=== PATIENT | female | born 1990 | race African-American/Black ===

== ENCOUNTER 2017-05-08 08:40 | Inpatient (IN) | payer SELFPAY ==
[2017-05-08] MEDS ORDERED: METHYLPREDNISOLONE INJ 125 MG/2 ML SDV IV ONE (09:23)
[2017-05-08] MEDS ORDERED: KETOROLAC TROMETHAMINE INJ/PF 30 MG/1 ML SDV IV ONE (09:23)
[2017-05-08] MEDS ORDERED: CEFTRIAXONE 1 GM/D5W RTU 50 ML IV ONE (09:23)
--- NOTE | 2017-05-08 09:37 | ER Document Report ---
ED ENT - General Chief Complaint: Sore Throat Stated Complaint: THROAT PAIN WITH FEVER Time Seen by Provider: 05/08/17 09:09 Mode of Arrival: Ambulatory Information source: Patient Notes: 26-year-old female presents to ED for sore throat since Monday. With fevers up to 103.8 this morning. States mom made her take Tylenol the morning even though is very difficult to swallow. She is spitting out her spit now states it is too painful to swallow. Patient had fevers chills dizziness body aches headaches as well as a sore throat. TRAVEL OUTSIDE OF THE [place] IN LAST 30 DAYS: No - HPI Patient complains to provider of: Throat problem Onset: Other - monday Quality of pain: Stabbing Severity: Severe Pain Level: 5 Location of pain: Throat Associated symptoms: Chills, Drooling, Fever, Sore throat, Swollen glands, Other - unable to swallow Similar symptoms previously: No Recently seen / treated by doctor: No - Related Data Allergies/Adverse Reactions: lactose [Lactose] Adverse Reaction (Verified 05/08/17 08:48) upset stomach Past Medical History - General Information source: Patient - Social History Smoking Status: Former Smoker Cigarette use (# per day): No Chew tobacco use (# tins/day): No Smoking Education Provided: No Frequency of alcohol use: Occasional Drug Abuse: None Occupation: [employer] Lives with: Family Family History: Reviewed & Not Pertinent Patient has suicidal ideation: No Patient has homicidal ideation: No - Past Medical History Cardiac Medical History: Reports: None, Hx Hypercholesterolemia Pulmonary Medical History: Reports: Hx Bronchitis EENT Medical History: Reports: None Neurological Medical History: Reports: None Endocrine Medical History: Reports: None Renal/ Medical History: Reports: Hx Pelvic Inflammatory Disease Malignancy Medical History: Reports: None GI Medical History: Reports: None Musculoskeltal Medical History: Reports None Skin Medical History: Reports None Psychiatric Medical History: Reports: None Traumatic Medical History: Reports: None Infectious Medical History: Reports: None Past Surgical History: Reports: Hx Adenoidectomy, Hx Gynecologic Surgery - colposcopy - Immunizations Immunizations up to date: Yes Hx Diphtheria, Pertussis, Tetanus Vaccination: Yes Review of Systems - Review of Systems Constitutional: Chills, Fever, Recent illness EENT: Throat pain, Difficulty swallowing Cardiovascular: No symptoms reported Respiratory: No symptoms reported Gastrointestinal: No symptoms reported Genitourinary: No symptoms reported Female Genitourinary: No symptoms reported Musculoskeletal: No symptoms reported Skin: No symptoms reported Hematologic/Lymphatic: No symptoms reported Neurological/Psychological: No symptoms reported -: Yes All other systems reviewed and negative Physical Exam - Vital signs Vitals: Temp Pulse Resp BP Pulse Ox 99.7 F 101 H 22 H 115/57 L 97 05/08/17 08:47 05/08/17 08:47 05/08/17 08:47 05/08/17 08:47 05/08/17 08:47 Interpretation: Normal - General General appearance: Appears well, Alert - HEENT Head: Normocephalic, Atraumatic Eyes: Normal Pupils: PERRL Ears: Normal External canal: Normal Tympanic membrane: Normal Nasal: Normal Mouth/Lips: Normal Pharynx: Erythema, Exudate, Peritonsillar abscess, Tonsillar hypertrophy Neck: Anterior cervical chain - Respiratory Respiratory status: No respiratory distress Chest status: Nontender Breath sounds: Normal Chest palpation: Normal - Cardiovascular Rhythm: Regular Heart sounds: Normal auscultation Murmur: No - Abdominal Inspection: Normal Distension: No distension Bowel sounds: Normal Tenderness: Nontender Organomegaly: No organomegaly - Back Back: Normal, Nontender - Extremities General upper extremity: Normal inspection, Nontender, Normal color, Normal ROM , Normal temperature General lower extremity: Normal inspection, Nontender, Normal color, Normal ROM , Normal temperature, Normal weight bearing. No: Shannan's sign - Neurological Neuro grossly intact: Yes Cognition: Normal Orientation: AAOx4 Gilman Coma Scale Eye Opening: Spontaneous Joellen Coma Scale Verbal: Oriented Joellen Coma Scale Motor: Obeys Commands Gilman Coma Scale Total: 15 Speech: Normal Motor strength normal: LUE, RUE, LLE, RLE Sensory: Normal - Psychological Associated symptoms: Normal affect, Normal mood - Skin Skin Temperature: Warm Skin Moisture: Dry Skin Color: Normal Course - Re-evaluation Re-evalutation: 05/08/17 11:[address] Dubois, ENT peritonsillar abscess with elevated white count difficulty swallowing. He agreed to consult on this patient if she was admitted to the hospitalist. Consulted Dr. Bang will admit the patient with Dr. Dubois as consult. Patient ordered Unasyn 3 g and IV of D5 normal saline with 20 K at 150 cc an hour as per Dr Dubois's request. - Vital Signs Vital signs: Temp Pulse Resp BP Pulse Ox 99.7 F 101 H 22 H 115/57 L 97 05/08/17 08:47 05/08/17 08:47 05/08/17 08:47 05/08/17 08:47 05/08/17 08:47 - Laboratory Result Diagrams: 05/08/17 09:13 05/08/17 09:13 Laboratory results interpreted by me: 05/08/17 05/08/17 09:13 09:13 WBC 21.0 H Hgb 9.4 L Hct 30.6 L MCV 76 L MCH 23.3 L MCHC 30.8 L RDW 17.7 H Seg Neuts % (Manual) 83 H Band Neutrophils % 2 L Lymphocytes % (Manual) 11 L Abs Neuts (Manual) 17.9 H ESR 38 H C-Reactive Protein 136.3 H - Diagnostic Test Radiology reviewed: Image reviewed, Reports reviewed Discharge - Discharge Clinical Impression: Peritonsillar abscess Disposition: ADMITTED INPATIENT Admitting Provider: Hospitalist - [facility] Admitted: Medical Floor
[2017-05-08 10:07] LABS: HEMATOCRIT 30.6 % (36.0-47.0); HEMOGLOBIN 9.4 g/dL (12.0-15.5); HGB HCT DIFFERENCE -2.4; MEAN CORPUSCULAR HEMOGLOBIN 23.3 pg (27.0-33.4); MEAN CORPUSCULAR HGB CONC 30.8 g/dL (32.0-36.0); MEAN CORPUSCULAR VOLUME 76 fl (80-97); RED BLOOD COUNT 4.04 10^6/uL (3.72-5.28); RED CELL DISTRIBUTION WIDTH 17.7 % (11.5-14.0)
[2017-05-08 10:29] LABS: ALANINE AMINOTRANSFERASE 24 U/L (9-52); ALBUMIN 3.8 g/dL (3.5-5.0); ALKALINE PHOSPHATASE 47 U/L (38-126); ANION GAP 12 (5-19); ASPARTATE AMINO TRANSFERASE 17 U/L (14-36); BILIRUBIN,DIRECT 0.3 mg/dL (0.0-0.4); BILIRUBIN,TOTAL 0.6 mg/dL (0.2-1.3); BLOOD UREA NITROGEN 9 mg/dL (7-20); CARBON DIOXIDE 24 mmol/L (22-30); CHLORIDE 105 mmol/L (98-107); CREATININE RESULT 0.98 mg/dL (0.52-1.25); GLUCOSE 99 mg/dL (75-110); POTASSIUM 3.6 mmol/L (3.6-5.0); SODIUM 140.9 mmol/L (137-145); TOTAL PROTEIN 7.4 g/dL (6.3-8.2)
[2017-05-08 10:41] LABS: ANISOCYTOSIS 2+; BAND NEUTROPHILS % (MANUAL) 2 % (3-5); BASOPHILS % (MANUAL) 0 % (0-2); EOSINOPHILS % (MANUAL) 0 % (0-6); LYMPHOCYTES % (MANUAL) 11 % (13-45); MICROCYTOSIS 1+; OVALOCYTES 1+; POIKILOCYTOSIS 1+; POLYCHROMASIA SLIGHT; TOTAL CELLS COUNTED 100; TOXIC GRANULATION SLIGHT
[2017-05-08 10:44] LABS: ERYTHROCYTE SEDIMENTATION RATE 38 mm/hr (0-20)
[2017-05-08 10:45] LABS: C-REACTIVE PROTEIN 136.3 mg/L (<10.0)
--- NOTE | 2017-05-08 11:32 | RADIOLOGY REPORT (SQ) ---
EXAM DESCRIPTION: CT SOFT TISSUE NECK WITH COMPLETED DATE/TIME: 05/08/2017 10:36 am REASON FOR STUDY: sore throat difficulty swallowing possible periton COMPARISON: None. TECHNIQUE: Post IV contrasted scanning from skull base through lung apices with review of bone, soft tissue and lung windows. Reconstructed coronal and sagittal MPR images reviewed. All images stored on PACS. All CT scanners at this facility use dose modulation, iterative reconstruction, and/or weight based d osing when appropriate to reduce radiation dose to as low as reasonably achievable (ALARA). [facility]: Dose Right [facility]: CareDose [facility]: Dose Right [facility]: Teradose 4D [facility]: GitHub CONTRAST TYPE AND DOSE: 75 Isovue 370- low osmolar. RENAL FUNCTION: None required. The patient is less than 50 years old. RADIATION DOSE: 14.82 mGy. LIMITATIONS: Study is limited somewhat due to streak artifacts. FINDINGS: SKULL BASE: Intact. MAJOR SALIVARY GLANDS: No solid or cystic masses. No inflammatory changes. LYMPHADENOPATHY: No adenopathy. MUCOSAL MASSES OR ASYMMETRY: There is asymmetric soft tissue swelling in the right tonsillar region w ith associated relative low density areas. There is impingement on the pharyngeal air column. The a ppearance is suspicious for a peritonsillar abscess. Clinical correlation is recommended LARYNX/CORDS: No abnormal findings. VASCULAR STRUCTURES: The major vessels are patent. LUNG APICES: Clear. BONES: Intact. THYROID: Normal size. No masses. PARANASAL SINUSES: Clear. OTHER: No other significant finding. IMPRESSION: Findings suspicious for right peritonsillar abscess as noted above. Clinical correlated is recommended. Other findings as noted above TECHNICAL DOCUMENTATION: JOB ID: [id number] Quality ID # [id number]: Final reports with documentation of one or more dose reduction techniques (e.g., Au tomated exposure control, adjustment of the mA and/or kV according to patient size, use of iterative reconstruction technique) 2010 [employer]- All Rights Reserved
[2017-05-08] MEDS ORDERED: AMPICILLIN SOD/SULBACTAM 3 GM VIAL IV ONE (11:53)
[2017-05-08] MEDS ORDERED: POTASSI CL 20 MEQ/D5-1/2NS 1L 1,000 ML IV ONE (11:53)
[2017-05-08] MEDS ORDERED: GLUCAGON,HUMAN RECOMB 1 MG INJ SUBCUT PRN (12:49)
[2017-05-08] MEDS ORDERED: DEXTROSE 40% GEL 15 GM TUBE PO PRN ×2 (12:49)
[2017-05-08] MEDS ORDERED: ACETAMINOPHEN 325 MG TABLET PO PRN (12:49)
[2017-05-08] MEDS ORDERED: NORMAL SALINE 1000 ML 1,000 ML IV PRN (12:49)
[2017-05-08] MEDS ORDERED: DEXTROSE 50%-WATER 25 GM/50 ML DISP.SYRIN IV PRN ×2 (12:49)
--- NOTE | 2017-05-08 13:11 | PDOC H&P ---
History of Present Illness Admission Date/PCP: 05/08/17 12:08 TAMIKO WIGGINS MD Patient complains of: Neck pain and difficulty swallowing History of Present Illness: ARACELI PATEL is a 26 year old female with no significant past medical history who presents with a sore throat and difficulty swallowing. Patient reports that 2 days ago she began with a sore throat. Yesterday she began to run low-grade fevers at home. Over the last 12 hours she has noticed she has had more trouble swallowing and has actually been drooling some. She denies any shortness of breath. She denies any wheezing. Patient was found to have a right peritonsillar abscess. Emergency room physician contacted ENT, Dr. Ballesteros who asked that we admit the patient for IV steroids and antibiotics and that he will see the patient later today. Past Medical History Cardiac Medical History: Reports: None, Hyperlipidema Pulmonary Medical History: Reports: Bronchitis EENT Medical History: Reports: None Neurological Medical History: Reports: None Endocrine Medical History: Reports: None Malignancy Medical History: Reports: None GI Medical History: Reports: None Musculoskeltal Medical History: Reports: None Skin Medical History: Reports: None Psychiatric Medical History: Reports: None Traumatic Medical History: Reports: None Infectious Medical History: Reports: None Past Surgical History Past Surgical History: Reports: Adenoidectomy, Tonsillectomy - adenoids Social History Information Source: Patient Lives with: Family Smoking Status: Former Smoker Frequency of Alcohol Use: None Hx Recreational Drug Use: No Hx Prescription Drug Abuse: No - Advance Directive Resuscitation Status: Full Code Family History Family History: This 53 alive and has prediabetes. Father is in his mid 50s and is healthy Parental Family History Reviewed: Yes Children Family History Reviewed: No Sibling(s) Family History Reviewed.: No Medication/Allergy Home Medications: No Home Medications 07/11/15 Allergies/Adverse Reactions: lactose [Lactose] Adverse Reaction (Verified 05/08/17 08:48) upset stomach Review of Systems Constitutional: PRESENT: fever(s). ABSENT: chills, headache(s), weight gain, weight loss Eyes: ABSENT: visual disturbances Ears: ABSENT: hearing changes Nose, Mouth, and Throat: PRESENT: as per HPI Cardiovascular: ABSENT: chest pain, dyspnea on exertion, edema, orthropnea, palpitations Respiratory: ABSENT: cough, hemoptysis Gastrointestinal: ABSENT: abdominal pain, constipation, diarrhea, hematemesis, hematochezia, nausea, vomiting Genitourinary: ABSENT: dysuria, hematuria Musculoskeletal: ABSENT: joint swelling Integumentary: ABSENT: rash, wounds Neurological: ABSENT: abnormal gait, abnormal speech, confusion, dizziness, focal weakness, syncope Psychiatric: ABSENT: anxiety, depression, homidical ideation, suicidal ideation Endocrine: PRESENT: other - Patient is currently on her menses Hematologic/Lymphatic: ABSENT: easy bleeding, easy bruising Physical Exam Vital Signs: Temp Pulse Resp BP Pulse Ox 99.7 F 101 H 22 H 115/57 L 97 05/08/17 08:47 05/08/17 08:47 05/08/17 08:47 05/08/17 08:47 05/08/17 08:47 General appearance: PRESENT: no acute distress, well-developed, well-nourished Head exam: PRESENT: atraumatic, normocephalic Eye exam: PRESENT: conjunctiva pink, EOMI, PERRLA. ABSENT: scleral icterus Ear exam: PRESENT: normal external ear exam Mouth exam: PRESENT: other - She has some soft tissue swelling on the right tonsillar area Neck exam: PRESENT: lymphadenopathy - Right submandibular lymphadenopathy. ABSENT: carotid bruit, JVD, thyromegaly Respiratory exam: PRESENT: clear to auscultation dea. ABSENT: rales, rhonchi, wheezes Cardiovascular exam: PRESENT: RRR. ABSENT: diastolic murmur, rubs, systolic murmur Vascular exam: PRESENT: normal capillary refill GI/Abdominal exam: PRESENT: normal bowel sounds, soft. ABSENT: distended, guarding, mass, organolmegaly, rebound, tenderness Rectal exam: PRESENT: deferred Extremities exam: ABSENT: calf tenderness, clubbing, pedal edema Neurological exam: PRESENT: alert, awake, oriented to person, oriented to place , oriented to time, oriented to situation, CN II-XII grossly intact. ABSENT: motor sensory deficit Psychiatric exam: PRESENT: appropriate affect Skin exam: PRESENT: dry, intact, warm. ABSENT: cyanosis, rash Results Impressions: Soft Tissue Neck CT 05/08/17 09:22 IMPRESSION: Findings suspicious for right peritonsillar abscess as noted above. Clinical correlated is recommended. Other findings as noted above Assessment & Plan - Diagnosis (1) Peritonsillar abscess Is this a current diagnosis for this admission?: YesPlan: The patient has CT evidence for peritonsillar abscess. Will admit the patient for IV Unasyn and Solu-Medrol. ENT, Dr. Yousif was contacted by the emergency room and he agreed to come in and see the patient later today. Give morphine IV for the pain. - Time Time Spent: 30 to 50 Minutes - Inpatient Certification Medical Necessity: Need For IV Fluids, Need for IV Antibiotics
[2017-05-08] MEDS: METHYLPREDNISOLONE INJ 40 MG/1 ML SDV IV SCH ×2 (15:01→21:31)
[2017-05-08] MEDS: AMPICILLIN SODIUM/SULBACTAM NA 3 GM in NORMAL SALINE 100 ML IV SCH ×2 (18:27→23:17)
--- NOTE | 2017-05-08 20:13 | CONSULT/HISTORY AND PHYSICAL E ---
Consultation/History and Physical PATIENT NAME: ARACELI PATEL : 1990 AGE: 26Y DATE: 05/08/2017 ROOM: 208 PRESENTING COMPLAINT: Dysphagia, odynophagia, right otalgia. HISTORY OF PRESENTING COMPLAINT: This is a 26-year-old -[place] girl who presented to the emergency department this morning with a 72-hour history of advancing dysphagia, odynophagia, and right-sided otalgia together with fever to 103.8 degrees Fahrenheit. She was seen and evaluated in the emergency department. CT scanning was done which appeared to show an early right-sided peritonsillar abscess. The staff member, Justine *------*, Nurse Practitioner, called [facility] for advice, (even though [facility] was not actually on emergency hedrick call,) and a review of the CT scan was done, and it was recommended that the patient be admitted to [facility] under the Hospitalist Service, if they would agree, for a trial of intravenous antibiotics, steroids and pain management. This has now been done, and the patient is being seen in consultation. PAST MEDICAL HISTORY: Positive for: 1. Bilateral myringotomies and tubes. 2. Adenoidectomy. 3. Colposcopy (?with possible cone biopsy). FAMILY HISTORY: Reveals that she is 1 of 3 children. There is a strong family history on her mother's side for diabetes, in the patient's own mother, the maternal grandmother, and the maternal great-grandmother. SOCIAL HISTORY: Reveals that she is single. She lives with a female roommate who smokes. They used to have a dog but were forced to give it up by the landlord a month ago. She apparently quit smoking a year to a year and a half ago. 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 She is studying for college. MEDICATIONS: None. ALLERGIES: No known drug allergies. She lists a lactose intolerance, but she was very excited about having a milkshake this evening. REVIEW OF SYSTEMS: A 10-point systems review was applied, and all of this was answered in the negative except for questions relating to her presenting complaint. PHYSICAL EXAMINATION: GENERAL: Reveals a healthy-appearing -[place] girl of 26 who was initially seen lying comfortably supine without dyspnea. There is no stridor, sweating, hoarseness, drooling, hot potato voice. There is also no evidence of trismus. HEENT: In the head and neck region: the pupils are equal and reacting to light. Cranial nerves III-XII: grossly intact. The nose reveals mild rightward septal deflection with the right inferior turbinate being larger the left. The ears are clear. Tympanic membranes are intact, translucent, and delicate. Oral exam reveals no evidence of trismus. The teeth are in good repair, except that she has a fair amount of dental plaque, suggesting that she does not floss much. The tongue is moist, and protrudes in the midline. The soft palate elevates in the midline. Uvula is midline. There is a fullness in both tonsils. The right is marginally bigger than the left, suggesting that she may have already spontaneously discharged? There is no bulge in the soft palate on the right. NECK: There is a single tender jugulodigastric node about 2 cm across. CHEST: Clear to auscultation. There is a tattoo of her nickname on the patient's right shoulder. CARDIOVASCULAR SYSTEM: Reveals a pulse of 68/m, regular, sinus rhythm. Good volume. BP is 115/57. Heart sounds: S1, S2. No murmurs or gallops heard. ABDOMEN: Soft. It is mildly obese. No hepatosplenomegaly appreciated. There are few bowel sounds. RECTAL AND GENITALIA: Deferred. MUSCULOSKELETAL SYSTEM: Reveals no unaccounted-for bruising. No focal neurological deficits. No ankle edema. She actually feels cold and is wearing bed socks. RADIOLOGY: The CVT scan was reviewed. LABORATORY: Her laboratory results were reviewed. MEDICAL RECORD: The E.D notes and Dr. Bell's History and Physical were reviewed. IMPRESSION: Early right peritonsillar abscess. PLAN: The plan is to continue with IV Unasyn 3 grams on a 6 hourly basis, and IV steroids. PROGNOSIS: The likelihood is that this situation will defervesce on medical management and that she will probably not come to require incision and drainage. She may even spontaneously rupture and drain her abscess in the next 12 hours. Otolaryngology will follow the patient on a b.i.d. basis. DICTATING PHYSICIAN: LIBRADO PEPE M.D. [id number] PHY#: [id number] ID: [id number] JOB#: [id number] ACCT: [id number] cc:LIBRADO PEPE M.D. > SCOTT
[2017-05-09] MEDS: METHYLPREDNISOLONE INJ 40 MG/1 ML SDV IV SCH ×3 (05:22→21:52)
[2017-05-09] MEDS: AMPICILLIN SODIUM/SULBACTAM NA 3 GM in NORMAL SALINE 100 ML IV SCH ×4 (05:22→23:53)
[2017-05-09 07:10] LABS: HEMOGLOBIN 9.2 g/dL (12.0-15.5); HGB HCT DIFFERENCE -2.4; MEAN CORPUSCULAR HEMOGLOBIN 23.2 pg (27.0-33.4); MEAN CORPUSCULAR HGB CONC 30.5 g/dL (32.0-36.0); MEAN CORPUSCULAR VOLUME 76 fl (80-97); RED BLOOD COUNT 3.94 10^6/uL (3.72-5.28); WHITE BLOOD COUNT 28.5 10^3/uL (4.0-10.5)
[2017-05-09 07:21] LABS: ANION GAP 12 (5-19); BLOOD UREA NITROGEN 14 mg/dL (7-20); CALCIUM 9.3 mg/dL (8.4-10.2); CARBON DIOXIDE 21 mmol/L (22-30); CHLORIDE 109 mmol/L (98-107); CREATININE RESULT 0.77 mg/dL (0.52-1.25); GLUCOSE 136 mg/dL (75-110); POTASSIUM 4.4 mmol/L (3.6-5.0)
[2017-05-09 08:05] LABS: ANISOCYTOSIS 2+; BASOPHILS % (MANUAL) 0 % (0-2); EOSINOPHILS % (MANUAL) 0 % (0-6); HYPOCHROMASIA SLIGHT; LYMPHOCYTES % (MANUAL) 8 % (13-45); POLYCHROMASIA SLIGHT; TOTAL CELLS COUNTED 100
[2017-05-09 08:06] LABS: OVALOCYTES 1+; POIKILOCYTOSIS 1+
[2017-05-09] MEDS: MORPHINE SULFATE 10 MG/ML INJ IV PRN (08:18)
[2017-05-09] MEDS: ONDANSETRON HCL INJ/PF 4 MG/2 ML SDV IV PRN (08:19)
[2017-05-09] MEDS ORDERED: NORMAL SALINE 1000 ML 1,000 ML IV PRN (13:48)
--- NOTE | 2017-05-09 13:52 | PDOC PROGRESS REPORT ---
Subjective Progress Note for:: 05/09/17 Subjective:: Pain on throat same but swelling is less. Able to tolerate some oral intake. No diarrhea. No N/V/chills/fever this time. Physical Exam Vital Signs: Temp Pulse Resp BP Pulse Ox 98.0 F 70 16 100/49 L 99 05/09/17 12:30 05/09/17 12:30 05/09/17 12:30 05/09/17 12:30 05/09/17 12:30 Intake & Output 05/08/17 05/09/17 05/10/17 06:59 06:59 06:59 Intake Total 940 Output Total 60 Balance 880 Weight 78.2 kg General appearance: PRESENT: no acute distress, cooperative Head exam: PRESENT: normocephalic Eye exam: PRESENT: EOMI Mouth exam: PRESENT: moist, neck supple Throat exam: PRESENT: post pharyngeal erythema, tonsillar erythema Neck exam: ABSENT: JVD Respiratory exam: PRESENT: clear to auscultation dea Cardiovascular exam: PRESENT: RRR GI/Abdominal exam: PRESENT: soft. ABSENT: distended, tenderness Extremities exam: ABSENT: pedal edema Neurological exam: PRESENT: alert, awake, oriented to situation Skin exam: PRESENT: dry, warm. ABSENT: cyanosis Results Laboratory Results: 05/09/17 06:31 05/09/17 06:31 05/09/17 05/09/17 06:31 06:31 WBC 28.5 H RBC 3.94 Hgb 9.2 L Hct 30.0 L MCV 76 L MCH 23.2 L MCHC 30.5 L RDW 18.0 H Plt Count 337 Seg Neutrophils % Not Reportable Lymphocytes % Not Reportable Monocytes % Not Reportable Eosinophils % Not Reportable Basophils % Not Reportable Absolute Neutrophils Not Reportable Absolute Lymphocytes Not Reportable Absolute Monocytes Not Reportable Absolute Eosinophils Not Reportable Absolute Basophils Not Reportable Sodium 142.0 Potassium 4.4 Chloride 109 H Carbon Dioxide 21 L Anion Gap 12 BUN 14 Creatinine 0.77 Est GFR ( Amer) > 60 Est GFR (Non-Af Amer) > 60 Glucose 136 H Calcium 9.3 Impressions: Soft Tissue Neck CT 05/08/17 09:22 IMPRESSION: Findings suspicious for right peritonsillar abscess as noted above. Clinical correlated is recommended. Other findings as noted above Assessment & Plan - Diagnosis (1) Peritonsillar abscess Is this a current diagnosis for this admission?: Yes (2) Anemia Qualifiers: Anemia type: iron deficiency Iron deficiency anemia type: unspecified iron deficiency Qualified Code(s): D50.9 - Iron deficiency anemia, unspecified Is this a current diagnosis for this admission?: Yes - Time Time Spent with patient: 25-34 minutes - Plan Summary Plan Summary: Continue antibiotics, decrease IVF, recheck wbc. Try softer diet or ground meats. Continue supportive care.
[2017-05-09 18:39] LABS: FOLATE 9.17 ng/mL (>2.76)
[2017-05-10] MEDS: ONDANSETRON HCL INJ/PF 4 MG/2 ML SDV IV PRN (01:47)
[2017-05-10] MEDS: MORPHINE SULFATE 10 MG/ML INJ IV PRN (01:47)
[2017-05-10] MEDS: AMPICILLIN SODIUM/SULBACTAM NA 3 GM in NORMAL SALINE 100 ML IV SCH ×2 (06:08→11:42)
[2017-05-10] MEDS: METHYLPREDNISOLONE INJ 40 MG/1 ML SDV IV SCH ×2 (06:08→13:24)
[2017-05-10 07:22] LABS: HEMATOCRIT 26.7 % (36.0-47.0); HEMOGLOBIN 8.2 g/dL (12.0-15.5); HGB HCT DIFFERENCE -2.1; MEAN CORPUSCULAR HEMOGLOBIN 23.4 pg (27.0-33.4); MEAN CORPUSCULAR HGB CONC 30.9 g/dL (32.0-36.0); MEAN CORPUSCULAR VOLUME 76 fl (80-97); RED BLOOD COUNT 3.52 10^6/uL (3.72-5.28); RED CELL DISTRIBUTION WIDTH 18.2 % (11.5-14.0); WHITE BLOOD COUNT 22.9 10^3/uL (4.0-10.5)
[2017-05-10 07:36] LABS: ANION GAP 10 (5-19); BLOOD UREA NITROGEN 13 mg/dL (7-20); CALCIUM 8.7 mg/dL (8.4-10.2); CARBON DIOXIDE 23 mmol/L (22-30); CHLORIDE 108 mmol/L (98-107); GLUCOSE 126 mg/dL (75-110); POTASSIUM 4.5 mmol/L (3.6-5.0); SODIUM 141.3 mmol/L (137-145)
[2017-05-10 08:02] VITALS: BP 117/55
--- NOTE | 2017-05-10 12:15 | PDOC DISCHARGE SUMMARY ---
General - Admit/Disc Date/PCP Admission Date/Primary Care Provider: 05/08/17 12:49 TAMIKO WIGGINS MD Discharge Date: 05/10/17 - Discharge Diagnosis (1) Peritonsillar abscess Is this a current diagnosis for this admission?: Yes (2) Anemia Is this a current diagnosis for this admission?: Yes - Additional Information Resuscitation Status: Full Code Discharge Diet: Other (Comments) - Soft mechanical Discharge Activity: Activity As Tolerated, Balance Activity w/Rest Home Medications: Acetaminophen [Tylenol 325 mg Tablet] 650 mg PO Q4HP PRN 05/08/17 Acidoph/L.bulg/Bif.b/S.thermop [Bacid Caplet] 1 each PO BID #20 tablet 05/10/17 Amox Tr/Potassium Clavulanate [Augmentin 875-125 mg Tablet] 1 tab PO BID #20 tablet 05/10/17 Methylprednisolone [Medrol Dosepack (4 mg/Tab) 21 Tab/Dosepak] 4 mg PO ASDIR PRN #21 tab.ds.pk 05/10/17 History of Present Illness Patient complains of: Next pain and difficulty swallowing History of Present Illness: ARACELI PATEL is a 26 year old female with no significant past medical history who presents with a sore throat and difficulty swallowing. Patient reports that 2 days ago she began with a sore throat. Yesterday she began to run low-grade fevers at home. Over the last 12 hours she has noticed she has had more trouble swallowing and has actually been drooling some. She denies any shortness of breath. She denies any wheezing. Patient was found to have a right peritonsillar abscess. Emergency room physician contacted ENT, Dr. Ballesteros who asked that we admit the patient for IV steroids and antibiotics and that he will see the patient later today. Hospital Course Hospital Course: The patient was admitted to the medical floor. ENT was consulted and recommended conservative management with intravenous antibiotics, steroids, and IV fluids. Patient was begun on Solu-Medrol and likewise Unasyn. Patient's WBC was followed initially it trended up and eventually went down. Patient has no fever. Patient clinically improved after 48 hours of treatment. The swelling significantly improved and the patient was started on oral intake and did tolerate it well. ENT recommended medical management and cleared the patient to be discharged. A recommendation of follow-up in 4-6 weeks for possible outpatient tonsillectomy. The rest of the hospital stays unremarkable. Physical Exam Vital Signs: Temp Pulse Resp BP Pulse Ox 97.9 F 57 L 16 117/55 L 98 05/10/17 07:53 05/10/17 07:53 05/10/17 07:53 05/10/17 07:53 05/10/17 07:53 Intake & Output 05/09/17 05/10/17 05/11/17 06:59 06:59 06:59 Intake Total 940 1331 Output Total 60 Balance 880 1331 Weight 78.2 kg 79.4 kg General appearance: PRESENT: no acute distress, cooperative Head exam: PRESENT: normocephalic Eye exam: PRESENT: EOMI Mouth exam: PRESENT: moist, neck supple Neck exam: ABSENT: JVD Respiratory exam: PRESENT: clear to auscultation dea. ABSENT: rhonchi, wheezes Cardiovascular exam: PRESENT: RRR. ABSENT: gallop GI/Abdominal exam: PRESENT: normal bowel sounds, soft. ABSENT: distended Extremities exam: ABSENT: pedal edema Neurological exam: PRESENT: alert, awake, oriented to situation Skin exam: PRESENT: dry, warm. ABSENT: cyanosis Results Laboratory Results: 05/10/17 06:45 05/10/17 06:45 05/09/17 05/09/17 05/10/17 17:10 17:10 06:45 WBC 22.9 H RBC 3.52 L Hgb 8.2 L Hct 26.7 L MCV 76 L MCH 23.4 L MCHC 30.9 L RDW 18.2 H Plt Count 329 Retic Count (auto) 1.54 Absolute Retic 0.058 Sodium Potassium Chloride Carbon Dioxide Anion Gap BUN Creatinine Est GFR ( Amer) Est GFR (Non-Af Amer) Glucose Calcium Iron < 10.1 L TIBC 356 % Saturation UNABLE TO CALCULATE Ferritin 31.70 Vitamin B12 354.0 Folate 9.17 05/10/17 06:45 WBC RBC Hgb Hct MCV MCH MCHC RDW Plt Count Retic Count (auto) Absolute Retic Sodium 141.3 Potassium 4.5 Chloride 108 H Carbon Dioxide 23 Anion Gap 10 BUN 13 Creatinine 0.70 Est GFR ( Amer) > 60 Est GFR (Non-Af Amer) > 60 Glucose 126 H Calcium 8.7 Iron TIBC % Saturation Ferritin Vitamin B12 Folate Impressions: Soft Tissue Neck CT 05/08/17 09:22 IMPRESSION: Findings suspicious for right peritonsillar abscess as noted above. Clinical correlated is recommended. Other findings as noted above Qualifiers PATEINT BEING DISCHARGED WITH ANY OF THE FOLLOWING DIAGNOSIS?: No Plan Discharge Plan: Follow-up with primary care physician in 1 week. Follow-up with ENT in 4 weeks Time Spent: Less than 30 Minutes
== END 2017-05-10 15:25 | disposition home or self-care (01) | DRG 153 ==
LOC: ER 08:40 → EH 12:08 → UNDOADMIN 12:08 → EH 12:49 → 2N 14:17
PROVIDERS: ADMIT Internal Medicine; ATTEND Internal Medicine
DX: J36 Peritonsillar abscess (principal); E78.5 Hyperlipidemia, unspecified; D50.9 Iron deficiency anemia, unspecified; Z90.89 Acquired absence of other organs; Z87.891 Personal history of nicotine dependence; Z83.3 Family history of diabetes mellitus
CPT/HCPCS: 36415; 70491; 80048; 80053; 82607; 82728; 82746; 83540; 83550; 84703; 85025; 85027; 85045; 85652; 86140; 86308; 87040; 87070; 87077; 87880; 96365; 96375; 99284; J0295; J0696; J1885; J2270; J2405; J2920; J2930; J3480; J7030